=== PATIENT | female | born 1930 | race Asian ===

== ENCOUNTER 2018-04-23 17:58 | Inpatient (IN) | payer MEDICARE, MEDICAID ==
[~2018-04-23] VITALS: Ht 162.6 cm; Wt 59.4 kg
[2018-04-23] MEDS: Sodium Chloride 550 ML IV SCH ×3 (18:29→20:20)
[2018-04-23] MEDS ORDERED: fentaNYL 100 mcg/2 mL IV ONE ×3 (18:45→21:45)
[2018-04-23 18:52] LABS: APPEARANCE,URINE CLEAR; BILIRUBIN, URINE NEGATIVE (NEGATIVE); COLOR,URINE PALE YELLOW; GLUCOSE, URINE (UA) NEGATIVE (NEGATIVE); KETONES,URINE NEGATIVE (NEGATIVE); LEUKOCYTE ESTERASE ,URINE 1+ (NEGATIVE); NITRITE,URINE NEGATIVE (NEGATIVE); PH,URINE 6.5 (4.5-8.0); PROTEIN,URINE NEGATIVE (NEGATIVE); UROBILINOGEN,URINE NORMAL MG/DL (0.0-1.0)
[2018-04-23 19:02] LABS: BASOPHILS % (AUTO) 1.4 % (0.0-2.0); EOSINOPHILS % (AUTO) 1.7 % (0.0-3.0); HEMATOCRIT 38.5 % (37.0-47.0); HEMOGLOBIN 12.1 G/DL (12.0-16.0); LYMPHOCYTES % (AUTO) 25.8 % (20.0-45.0); MEAN CORPUSCULAR VOLUME 97 FL (80-99); MONOCYTES % (AUTO) 6.5 % (1.0-10.0); NEUTROPHILS % (AUTO) 64.6 % (45.0-75.0); PLATELET COUNT 208 K/UL (150-450); RED BLOOD COUNT 3.99 M/UL (4.20-5.40); RED CELL DISTRIBUTION WIDTH 13.5 % (11.6-14.8); WHITE BLOOD COUNT 8.8 K/UL (4.8-10.8)
[2018-04-23 19:06] LABS: INR 0.9 (0.9-1.1)
[2018-04-23 19:10] LABS: ANION GAP 9 mmol/L (5-15); BLOOD UREA NITROGEN 15 mg/dL (7-18); CALCIUM 8.9 MG/DL (8.5-10.1); CARBON DIOXIDE 27 MMOL/L (21-32); CHLORIDE 101 MMOL/L (98-107); CREATININE 0.9 MG/DL (0.55-1.30); POTASSIUM 3.8 MMOL/L (3.5-5.1); SODIUM 137 MMOL/L (136-145)
[2018-04-23 19:14] VITALS: BP 188/92
[2018-04-23 19:15] LABS: ALANINE AMINOTRANSFERASE 13 U/L (12-78); ALBUMIN 4.3 G/DL (3.4-5.0); ALBUMIN/GLOBULIN RATIO 1.1 (1.0-2.7); ALKALINE PHOSPHATASE 51 U/L (46-116); ASPARTATE AMINO TRANSFERASE 17 U/L (15-37); BILIRUBIN,TOTAL 0.4 MG/DL (0.2-1.0)
--- NOTE | 2018-04-23 19:38 | Diagnostic Imaging Report ---
EXAM: XR Right Forearm, 2 Views CLINICAL HISTORY: TRAUMA TECHNIQUE: Frontal and lateral views of the right forearm. COMPARISON: No relevant prior studies available. FINDINGS: Bones/joints: No acute fracture. Soft tissues: No radiodense foreign body. IMPRESSION: No acute fracture.
--- NOTE | 2018-04-23 19:38 | Diagnostic Imaging Report ---
EXAM: XR Right Wrist Complete, 3 or More Views CLINICAL HISTORY: TRAUMA TECHNIQUE: Frontal, lateral and oblique views of the right wrist. COMPARISON: No relevant prior studies available. FINDINGS: Bones/joints: No acute fracture. Degenerative changes. Soft tissues: No radiodense foreign body. IMPRESSION: No acute fracture.
--- NOTE | 2018-04-23 19:42 | Diagnostic Imaging Report ---
EXAM: XR Chest, 1 View CLINICAL HISTORY: TRAUMA TECHNIQUE: Frontal view of the chest. COMPARISON: No relevant prior studies available. FINDINGS: Lungs: Accentuation of interstitial markings and infiltrates in the left lower lung field. Pleural space: Unremarkable. No pneumothorax. Heart: Large cardiomediastinal silhouette. Mediastinum: See above. Bones/joints: No acute fracture. IMPRESSION: 1. Large cardiomediastinal silhouette. 2. Accentuation of interstitial markings and infiltrates in the left lower lung field.
--- NOTE | 2018-04-23 19:44 | Diagnostic Imaging Report ---
EXAM: CT Head Without Intravenous Contrast CLINICAL HISTORY: TRAUMA TECHNIQUE: Axial computed tomography images of the head/brain without intravenous contrast. CTDI is 70.38 mGy DLP is 1347 mGy-cm. One or more of the following dose reduction techniques were used: automated exposure control, adjustment of the mA and/or kV according to patient size, use of iterative reconstruction technique. COMPARISON: No relevant prior studies available. FINDINGS: Brain: No hemorrhage. No edema. Involutional changes with small vessel disease. Ventricles: Prominent ventricles. Bones/joints: No acute fracture. Soft tissues: Unremarkable. Sinuses: No acute sinusitis. Mastoid air cells: No mastoid effusion. Orbits: Cataract surgery. IMPRESSION: No acute traumatic findings.
--- NOTE | 2018-04-23 19:46 | Diagnostic Imaging Report ---
EXAM: XR Pelvis, 1 or 2 Views CLINICAL HISTORY: TRAUMA TECHNIQUE: Frontal view of the pelvis. COMPARISON: No relevant prior studies available. FINDINGS: Bones/joints: No acute fracture or dislocation. Degenerative changes. Pin fixation of the right hip. Soft tissues: No radiodense foreign body. IMPRESSION: No acute fracture or dislocation.
--- NOTE | 2018-04-23 20:15 | Emergency Room Report ---
History of Present Illness General Chief Complaint: Multiple Trauma/Fall Source: Patient, Family Member, EMS Present Illness HPI Patient fell face forward according to video at a supermarket. It's unknown whether she passed out or not. She hit her right shoulder. She's complaining about pain there. She the pain is severe. It's unknown whether she hit her head also. No fevers, chest pain, NVD. Patient not give history. H/O HTN. Allergies: Coded Allergies: No Known Allergies (Unverified , 04/23/18) Patient History Limited by: medical condition Past Medical History: see triage record Past Surgical History: other - R hip pinning Social History: Denies: smoking, alcohol use, drug use Social History Narrative with family Reviewed Nursing Documentation: PMH: Agreed; PSxH: Agreed Nursing Documentation-PMH Hx Hypertension: Yes Hx Gastrointestinal Problems: Yes - GERD Review of Systems All Other Systems: limited Physical Exam Vital Signs Date Time Temp Pulse Resp B/P (MAP) Pulse Ox O2 Delivery O2 Flow Rate FiO2 04/23/18 18:05 98.1 72 13 193/78 99 Room Air Sp02 EP Interpretation: reviewed, normal General Appearance: alert, Chronically Ill Head: normocephalic, other - no tenderness, assymetric skull, no hematoma Eyes: bilateral eye normal inspection, bilateral eye PERRL, bilateral eye EOMI ENT: moist mucus membranes Neck: supple, no bony tend Respiratory: chest non-tender, lungs clear, normal breath sounds Cardiovascular #1: regular rate, rhythm Cardiovascular #2: 2+ radial (R) Gastrointestinal: normal inspection, normal bowel sounds, non tender, no mass, non-distended Musculoskeletal: back normal, normal range of motion - except R shoulder - painful PROM and TTP , no calf tenderness, pelvis stable Neurologic: alert, motor strength/tone normal - except R shoulder - due to pain , DTRs symmetric, sensory intact, oriented - X2 Psychiatric: depressed affect Skin: normal inspection, warm/dry Medical Decision Making Diagnostic Impression: Primary Impression: Syncope Qualified Codes: R55 - Syncope and collapse Additional Impressions: Fall Qualified Codes: W19.XXXA - Unspecified fall, initial encounter Shoulder fracture, right Qualified Codes: S42.91XA - Fracture of right shoulder girdle, part unspecified, initial encounter for closed fracture ER Course Patient presents after syncopal episode from a standing position falling on her right side. Differential includes acute myocardial infarction, arrhythmia, trauma secondary to fall, intracerebral bleed amongst others. EKG, chest x-ray , CT the head, right humerus and forearm x-rays and AP pelvis are indicated along with labs. The patient will be given analgesia. EKG with sinus rhythm and sinus arrhythmia no acute changes. Chest x-ray without obvious rib fractures. Right humerus with humeral head fracture. Forearm without fracture. AP pelvis without fracture patient is status post screws in the right hip Patient is requiring high doses of analgesia to control the pain in her arm. A sling is applied and position is good and neurovascular is checked by me afterwards which is normal. Because of the syncopal episode the patient needs to be admitted for observation. Also orthopedic consultation will be obtained. Admit tele, Dr. Maza. Consult with . Sling applied by tech. Position excellent with improved pain. Distal neurovasc normal. Laboratory Tests Test 04/23/18 18:40 White Blood Count 8.8 K/UL (4.8-10.8) Red Blood Count 3.99 M/UL (4.20-5.40) L Hemoglobin 12.1 G/DL (12.0-16.0) Hematocrit 38.5 % (37.0-47.0) Mean Corpuscular Volume 97 FL (80-99) Mean Corpuscular Hemoglobin 30.3 PG (27.0-31.0) Mean Corpuscular Hemoglobin Concent 31.4 G/DL (32.0-36.0) L Red Cell Distribution Width 13.5 % (11.6-14.8) Platelet Count 208 K/UL (150-450) Mean Platelet Volume 7.1 FL (6.5-10.1) Neutrophils (%) (Auto) 64.6 % (45.0-75.0) Lymphocytes (%) (Auto) 25.8 % (20.0-45.0) Monocytes (%) (Auto) 6.5 % (1.0-10.0) Eosinophils (%) (Auto) 1.7 % (0.0-3.0) Basophils (%) (Auto) 1.4 % (0.0-2.0) Prothrombin Time 10.0 SEC (9.30-11.50) Prothrombin Time INR 0.9 (0.9-1.1) PTT 27 SEC (23-33) Urine Color Pale yellow Urine Appearance Clear Urine pH 6.5 (4.5-8.0) Urine Specific [place] 1.015 (1.005-1.035) Urine Protein Negative (NEGATIVE) Urine Glucose (UA) Negative (NEGATIVE) Urine Ketones Negative (NEGATIVE) Urine Blood 2+ (NEGATIVE) H Urine Nitrite Negative (NEGATIVE) Urine Bilirubin Negative (NEGATIVE) Urine Urobilinogen Normal MG/DL (0.0-1.0) Urine Leukocyte Esterase 1+ (NEGATIVE) H Urine RBC 10-15 /HPF (0 - 2) H Urine WBC 2-4 /HPF (0 - 2) Urine Squamous Epithelial Cells Moderate /LPF (NONE/OCC) H Urine Bacteria Few /HPF (NONE) Sodium Level 137 MMOL/L (136-145) Potassium Level 3.8 MMOL/L (3.5-5.1) Chloride Level 101 MMOL/L (98-107) Carbon Dioxide Level 27 MMOL/L (21-32) Anion Gap 9 mmol/L (5-15) Blood Urea Nitrogen 15 mg/dL (7-18) Creatinine 0.9 MG/DL (0.55-1.30) Estimate Glomerular Filtration Rate mL/min (>60) Glucose Level 101 MG/DL (74-106) Calcium Level 8.9 MG/DL (8.5-10.1) Total Bilirubin 0.4 MG/DL (0.2-1.0) Aspartate Amino Transferase (AST) 17 U/L (15-37) Alanine Aminotransferase (ALT) 13 U/L (12-78) Alkaline Phosphatase 51 U/L (46-116) Total Protein 8.1 G/DL (6.4-8.2) Albumin 4.3 G/DL (3.4-5.0) Globulin 3.8 g/dL Albumin/Globulin Ratio 1.1 (1.0-2.7) EKG Diagnostic Results Rate: normal Rhythm: NSR ST Segments: no acute changes - Sinus arrhythmia Rhythm Strip Diag. Results EP Interpretation: yes Rhythm: NSR, no PVC's, no ectopy Chest X-Ray Diagnostic Results Chest X-Ray Diagnostic Results : Chest X-Ray Ordered: Yes # of Views/Limited/Complete: 1 View Indication: Other EP Interpretation: Yes Interpretation: no consolidation, no effusion, no pneumothorax, other - Poor inspiration Impression: Other Electronically Signed by: Electronically signed by Eddie Doty MD Other X-Ray Diagnostic Results Other X-Ray Diagnostic Results #1: X-Ray ordered: AP pelvis # of Views/Limited Vs Complete: 1 View Indication: Pain Interpretation: no dislocation, no soft tissue swelling, no fractures, nonspecific bowel gas, other - Small bowel loops and increased stool status post right hip pinning Impression: Other Electronically Signed by: Electronically signed by Eddie Doty MD Other X-Ray Diagnostic Results #2: X-Ray ordered: Right humerus # of Views/Limited Vs Complete: 2 View Indication: Pain Interpretation: no dislocation, no soft tissue swelling, other - Fractured head of humerus Impression: Other Electronically Signed by: Electronically signed by Eddie Doty MD Other X-Ray Diagnostic Results #3: X-Ray ordered: Right forearm # of Views/Limited Vs Complete: 2 View Indication: Pain Interpretation: no dislocation, no soft tissue swelling, no fractures Impression: No acute disease Electronically Signed by: Electronically signed by Eddie Doty MD Other X-Ray Diagnostic Results #4: X-Ray ordered: Right wrist # of Views/Limited Vs Complete: 3 View Indication: Pain Interpretation: no dislocation, no soft tissue swelling, no fractures Impression: No acute disease Electronically Signed by: Electronically signed by Eddie Doty MD CT/MRI/US Diagnostic Results CT/MRI/US Diagnostic Results : Imaging Test Ordered: Head Impression involutional changes no bleed or masses Last Vital Signs Date Time Temp Pulse Resp B/P (MAP) Pulse Ox O2 Delivery O2 Flow Rate FiO2 04/24/18 00:09 98.4 75 17 159/87 98 Room Air Status: improved Disposition: ADMITTED INPATIENT Condition: Serious Eddie Doty MD Apr 23, 2018 20:15
[2018-04-23 20:36] VITALS: BP 170/85
[2018-04-23 22:02] VITALS: BP 146/102
[2018-04-24] VITALS (7 sets, daily range): BP systolic 149–170; BP diastolic 81–99
[2018-04-24] MEDS ORDERED: Morphine Sulfate 2mg/ml Inj(IV/IM USE ONLY) IVP PRN (01:15)
[2018-04-24] MEDS ORDERED: Morphine Sulfate 4mg/ml Inj (IV USE ONLY) IVP PRN (01:15)
[2018-04-24] MEDS: Sodium Chloride 550 ML IV SCH (05:30)
[2018-04-24] MEDS: Hydromorphone 0.5mg/0.5ml inj IVP PRN ×2 (08:33→14:25)
[2018-04-24] MEDS: Heparin 5000 units/ml inj SUBQ SCH ×2 (08:53→21:09)
--- NOTE | 2018-04-24 14:58 | History & Physical ---
History and Physical History & Physicial History and Physical HPI Patient fell face forward according to video at a supermarket. It's unknown whether she passed out or not. She hit her right shoulder. She's complaining about pain there. She the pain is severe. It's unknown whether she hit her head also. Denies cough, noted to have Pneumonia on CXR No fevers, chest pain, NVD. PMH: HTN, GERD, R hip surgery Allergies: Coded Allergies: No Known Allergies (Unverified , 04/23/18) All Other Systems: limited Physical Exam Vital Signs Noted General Appearance: alert, Chronically Ill, in some pain Head: normocephalic, other - no tenderness, assymetric skull, no hematoma Eyes: bilateral eye normal inspection, bilateral eye PERRL, bilateral eye EOMI ENT: moist mucus membranes Neck: supple, no bony tend Respiratory: chest non-tender, lungs clear, normal breath sounds Cardiovascular: HS1, HS2, regular rate, rhythm, 2+ radial pulses (R) Gastrointestinal: normal inspection, normal bowel sounds, non tender, no mass, non-distended Musculoskeletal: back normal, normal range of motion - except R shoulder - painful PROM and TTP , no calf tenderness, pelvis stable Neurologic: alert, motor strength/tone normal - except R shoulder - due to pain , DTRs symmetric, sensory intact, oriented - X2 Psychiatric: depressed affect Skin: normal inspection, warm/dry Impression: Syncope, Fall Shoulder fracture, right Hypertension GERD Plan Orthopedic Consult Cardiology Consult The patient will be given analgesia. IV antibiotics Sling PPX TAX AUDIT MANAGER medications Incentive spirometer O2 PRN Laboratory Tests Test 04/23/18 18:40 White Blood Count 8.8 K/UL (4.8-10.8) Red Blood Count 3.99 M/UL (4.20-5.40) L Hemoglobin 12.1 G/DL (12.0-16.0) Hematocrit 38.5 % (37.0-47.0) Mean Corpuscular Volume 97 FL (80-99) Mean Corpuscular Hemoglobin 30.3 PG (27.0-31.0) Mean Corpuscular Hemoglobin Concent 31.4 G/DL (32.0-36.0) L Red Cell Distribution Width 13.5 % (11.6-14.8) Platelet Count 208 K/UL (150-450) Mean Platelet Volume 7.1 FL (6.5-10.1) Neutrophils (%) (Auto) 64.6 % (45.0-75.0) Lymphocytes (%) (Auto) 25.8 % (20.0-45.0) Monocytes (%) (Auto) 6.5 % (1.0-10.0) Eosinophils (%) (Auto) 1.7 % (0.0-3.0) Basophils (%) (Auto) 1.4 % (0.0-2.0) Prothrombin Time 10.0 SEC (9.30-11.50) Prothrombin Time INR 0.9 (0.9-1.1) PTT 27 SEC (23-33) Urine Color Pale yellow Urine Appearance Clear Urine pH 6.5 (4.5-8.0) Urine Specific [place] 1.015 (1.005-1.035) Urine Protein Negative (NEGATIVE) Urine Glucose (UA) Negative (NEGATIVE) Urine Ketones Negative (NEGATIVE) Urine Blood 2+ (NEGATIVE) H Urine Nitrite Negative (NEGATIVE) Urine Bilirubin Negative (NEGATIVE) Urine Urobilinogen Normal MG/DL (0.0-1.0) Urine Leukocyte Esterase 1+ (NEGATIVE) H Urine RBC 10-15 /HPF (0 - 2) H Urine WBC 2-4 /HPF (0 - 2) Urine Squamous Epithelial Cells Moderate /LPF (NONE/OCC) H Urine Bacteria Few /HPF (NONE) Sodium Level 137 MMOL/L (136-145) Potassium Level 3.8 MMOL/L (3.5-5.1) Chloride Level 101 MMOL/L (98-107) Carbon Dioxide Level 27 MMOL/L (21-32) Anion Gap 9 mmol/L (5-15) Blood Urea Nitrogen 15 mg/dL (7-18) Creatinine 0.9 MG/DL (0.55-1.30) Estimate Glomerular Filtration Rate mL/min (>60) Glucose Level 101 MG/DL (74-106) Calcium Level 8.9 MG/DL (8.5-10.1) Total Bilirubin 0.4 MG/DL (0.2-1.0) Aspartate Amino Transferase (AST) 17 U/L (15-37) Alanine Aminotransferase (ALT) 13 U/L (12-78) Alkaline Phosphatase 51 U/L (46-116) Total Protein 8.1 G/DL (6.4-8.2) Albumin 4.3 G/DL (3.4-5.0) Globulin 3.8 g/dL Albumin/Globulin Ratio 1.1 (1.0-2.7) EKG: Rate: normal Rhythm: NSR ST Segments: no acute changes - Sinus arrhythmia XR AP pelvis: no dislocation, no soft tissue swelling, no fractures, nonspecific bowel gas, other - Small bowel loops and increased stool status post right hip pinning XR Right humerus: no dislocation, no soft tissue swelling, other - Fractured head of humerus Right forearm X ray: no dislocation, no soft tissue swelling, no fractures Right wrist XR: No acute disease XR Chest: Left basal infiltrates, CM CT Head: involutional changes no bleed or masses Eddie Miguel MD Apr 24, 2018 14:58
[2018-04-24] MEDS ORDERED: Albuterol/Ipratropium 3ml neb HHN PRN (16:30)
[2018-04-24] MEDS ORDERED: HydrALAZINE 25mg tab ORAL PRN (16:30)
[2018-04-24] MEDS: Piperacillin/Tazobactam 3.375 GM in NS 110 ML IVPB SCH (17:16)
[2018-04-25] VITALS: BP 160/87
[2018-04-25] MEDS: Piperacillin/Tazobactam 3.375 GM in NS 110 ML IVPB SCH ×3 (00:55→17:17)
[2018-04-25 04:00] VITALS: BP 144/80
[2018-04-25 04:42] LABS: BASOPHILS % (AUTO) 1.7 % (0.0-2.0); EOSINOPHILS % (AUTO) 1.9 % (0.0-3.0); HEMATOCRIT 35.9 % (37.0-47.0); HEMOGLOBIN 11.5 G/DL (12.0-16.0); LYMPHOCYTES % (AUTO) 24.6 % (20.0-45.0); MEAN CORPUSCULAR VOLUME 97 FL (80-99); MONOCYTES % (AUTO) 7.3 % (1.0-10.0); NEUTROPHILS % (AUTO) 64.4 % (45.0-75.0); PLATELET COUNT 256 K/UL (150-450); RED BLOOD COUNT 3.71 M/UL (4.20-5.40); RED CELL DISTRIBUTION WIDTH 13.9 % (11.6-14.8); WHITE BLOOD COUNT 9.5 K/UL (4.8-10.8)
[2018-04-25 05:27] LABS: ALANINE AMINOTRANSFERASE 16 U/L (12-78); ALBUMIN 3.6 G/DL (3.4-5.0); ALKALINE PHOSPHATASE 43 U/L (46-116); ANION GAP 10 mmol/L (5-15); ASPARTATE AMINO TRANSFERASE 31 U/L (15-37); BILIRUBIN,TOTAL 0.8 MG/DL (0.2-1.0); BLOOD UREA NITROGEN 14 mg/dL (7-18); CALCIUM 8.7 MG/DL (8.5-10.1); CARBON DIOXIDE 24 MMOL/L (21-32); CHLORIDE 103 MMOL/L (98-107); POTASSIUM 4.5 MMOL/L (3.5-5.1); SODIUM 137 MMOL/L (136-145)
[2018-04-25 08:00] VITALS: BP 124/81
--- NOTE | 2018-04-25 08:10 | Consultation ---
Consult Note Consult Note 88 yo female with fall, possibly syncopal episode, and rt humerus fx. c/o rt arm pain. +swelling and ecchymosis. n/v intact Xray reviewed: rt humeral neck fracture, non displaced, with small chip fracture of greater tuberosity no surgery needed. recommend sling immobilization. gentle ROM rt elbow hand wrist. Ice will f/u as outpt. Barbie Daley Apr 25, 2018 08:10
--- NOTE | 2018-04-25 08:57 | General Progress Note ---
Assessment/Plan Assessment/Plan Syncope, Fall Shoulder fracture, right Hypertension GERD advanced age possible dementia PLAN tele noted care reviewed d/w family per ortho, no surgery dc planning ? snf vs home impression, plan, and exam edited and reviewed in detail care discussed with RN Subjective Allergies: Coded Allergies: No Known Allergies (Unverified , 04/23/18) Subjective care noted and reviewed in bed comfortable no distress Objective Last 24 Hour Vital Signs Date Time Temp Pulse Resp B/P (MAP) Pulse Ox O2 Delivery O2 Flow Rate FiO2 04/25/18 04:08 76 04/25/18 04:07 Room Air Room Air 04/25/18 04:00 97.7 73 18 144/80 (101) 98 04/25/18 00:00 76 04/25/18 00:00 97.4 70 16 160/87 (111) 94 04/25/18 00:00 Room Air Room Air 04/24/18 20:00 75 04/24/18 20:00 Room Air Room Air 04/24/18 20:00 97.8 63 16 166/88 (114) 94 04/24/18 16:26 62 170/89 04/24/18 16:00 97.5 67 18 170/89 (116) 97 04/24/18 16:00 84 04/24/18 16:00 Room Air 04/24/18 14:55 97.2 04/24/18 12:00 Room Air 04/24/18 12:00 97.2 70 20 149/84 (105) 96 04/24/18 12:00 72 Intake and Output 04/24/18 04/25/18 18:59 06:59 Intake Total 507.5 ml 192.5 ml Output Total 140 ml 1550 ml Balance 367.5 ml -1357.5 ml Intake Oral 480 ml IV Total 27.5 ml 192.5 ml Output Urine Total 140 ml 1550 ml # Voids 3 Laboratory Tests 04/25/18 03:45: White Blood Count 9.5, Red Blood Count 3.71L, Hemoglobin 11.5L, Hematocrit 35.9L , Mean Corpuscular Volume 97, Mean Corpuscular Hemoglobin 30.9, Mean Corpuscular Hemoglobin Concent 32.0, Red Cell Distribution Width 13.9, Platelet Count 256, Mean Platelet Volume 6.8, Neutrophils (%) (Auto) 64.4, Lymphocytes (% ) (Auto) 24.6, Monocytes (%) (Auto) 7.3, Eosinophils (%) (Auto) 1.9, Basophils ( %) (Auto) 1.7, Prothrombin Time 10.6, Prothromb Time International Ratio 1.0, Sodium Level 137, Potassium Level 4.5, Chloride Level 103, Carbon Dioxide Level 24, Anion Gap 10, Blood Urea Nitrogen 14, Creatinine 1.0, Estimat Glomerular Filtration Rate , Glucose Level 104, Calcium Level 8.7, Total Bilirubin 0.8, Aspartate Amino Transf (AST/SGOT) 31, Alanine Aminotransferase (ALT/SGPT) 16, Alkaline Phosphatase 43L, Total Protein 7.3, Albumin 3.6, Globulin 3.7, Albumin/ Globulin Ratio 1.0 Height (Feet): 5 Height (Inches): 4.00 Weight (Pounds): 115 Objective WDWN NAD clear breath sounds bilaterally without rhonchi or wheeze [id number] without MRG NABS nontender no HSM no CC right shoulder pain nonfocal Fab Maza MD Apr 25, 2018 08:57
[2018-04-25] MEDS: Heparin 5000 units/ml inj SUBQ SCH ×2 (09:00→20:34)
[2018-04-25 12:00] VITALS: BP 128/84
--- NOTE | 2018-04-25 14:46 | Consultation ---
DATE OF CONSULTATION: 04/25/2018 ORTHOPEDIC CONSULTATION CONSULTING PHYSICIAN: Jack Malhotra M.D. HISTORY OF PRESENT ILLNESS: The patient is a very pleasant 88-year-old female, who had a witnessed fall in a supermarket and she is not quite sure what happened. This is being worked up for a syncopal episode, but she did fall forward landing on her right shoulder and had immediate onset of right shoulder and arm pain. She was helped up and transferred to [facility] ER where right shoulder and humerus x-ray showed a proximal humerus fracture with a small greater tuberosity fracture. Orthopedic consult has been called for question of surgical intervention. The patient is currently admitted to telemetry floor with workup for syncope. PAST MEDICAL HISTORY: Hypertension and GERD. PAST SURGICAL HISTORY: Right hip surgery. ALLERGIES: None. SOCIAL HISTORY: She is independent with all activities. She lives at home. PHYSICAL EXAMINATION: GENERAL: She is a very pleasant woman. She is cooperative with examination. EXTREMITIES: She has some ecchymosis of the right upper arm around the proximal femur, she has tenderness and some mild swelling. She is neurovascularly intact with ability to flex and extend the wrist and can wiggler her fingers. She has intact sensation in the axillary nerve. She can bend at the elbow without pain. However, any movement of the right upper arm or shoulder is very painful. There is no major tenderness around the clavicular area. IMAGING STUDIES: X-rays are reviewed. Multiple were obtained and most notably on humerus and shoulder x-rays, a nondisplaced humeral neck fracture and a small fracture of the greater tuberosity with minimal displacement. There is no dislocation. IMPRESSION: Right shoulder nondisplaced proximal humerus fracture with small chip fracture of the greater tuberosity and minimal displacement. No dislocation. DISCUSSION: At this time, I discussed the patient's findings. This does not require surgery. This will go on to healing. I would recommend sling immobilization for about four weeks before proceeding with gentle physical therapy. I would recommend ice, pain control, and very easy range of motion of right elbow, hand, and wrist. I will be happy to see her back in the office for continued outpatient management and serial x-rays to ensure this goes on to healing. All questions were answered by the patient. Thank you for allowing me to participate in the care of this patient. Please do not hesitate to contact me if there are any questions or concerns. Jack Malhotra M.D. Inez Lee DR: LOIS JOB#: [id number] CC: CECELIA
[2018-04-25 16:00] VITALS: BP 111/71
[2018-04-25 20:00] VITALS: BP 115/74
[2018-04-26] VITALS: BP 107/67
[2018-04-26] MEDS: Piperacillin/Tazobactam 3.375 GM in NS 110 ML IVPB SCH ×4 (01:28→23:58)
[2018-04-26 04:00] VITALS: BP 111/67
[2018-04-26 07:34] LABS: BASOPHILS % (AUTO) 1.4 % (0.0-2.0); EOSINOPHILS % (AUTO) 2.7 % (0.0-3.0); HEMATOCRIT 35.2 % (37.0-47.0); HEMOGLOBIN 11.3 G/DL (12.0-16.0); LYMPHOCYTES % (AUTO) 26.3 % (20.0-45.0); MEAN CORPUSCULAR VOLUME 96 FL (80-99); NEUTROPHILS % (AUTO) 57.7 % (45.0-75.0); PLATELET COUNT 218 K/UL (150-450); RED BLOOD COUNT 3.68 M/UL (4.20-5.40); RED CELL DISTRIBUTION WIDTH 13.5 % (11.6-14.8); WHITE BLOOD COUNT 8.8 K/UL (4.8-10.8)
[2018-04-26 07:55] LABS: ALANINE AMINOTRANSFERASE 18 U/L (12-78); ALBUMIN 3.2 G/DL (3.4-5.0); ALBUMIN/GLOBULIN RATIO 0.9 (1.0-2.7); ALKALINE PHOSPHATASE 36 U/L (46-116); ANION GAP 10 mmol/L (5-15); ASPARTATE AMINO TRANSFERASE 24 U/L (15-37); BILIRUBIN,TOTAL 0.8 MG/DL (0.2-1.0); BLOOD UREA NITROGEN 21 mg/dL (7-18); CALCIUM 8.3 MG/DL (8.5-10.1); CARBON DIOXIDE 27 MMOL/L (21-32); CHLORIDE 107 MMOL/L (98-107); POTASSIUM 3.9 MMOL/L (3.5-5.1); SODIUM 144 MMOL/L (136-145)
[2018-04-26 08:00] VITALS: BP 118/82
--- NOTE | 2018-04-26 08:21 | General Progress Note ---
Assessment/Plan Assessment/Plan Syncope, Fall Shoulder fracture, right Hypertension GERD advanced age possible dementia PLAN tele noted care reviewed d/w family - message left but no response back yet per ortho, no surgery dc planning ? snf vs home; pending family discussion impression, plan, and exam edited and reviewed in detail care discussed with RN Subjective Allergies: Coded Allergies: No Known Allergies (Unverified , 04/23/18) Subjective care noted and reviewed in bed comfortable no distress Objective Last 24 Hour Vital Signs Date Time Temp Pulse Resp B/P (MAP) Pulse Ox O2 Delivery O2 Flow Rate FiO2 04/26/18 07:18 97.5 04/26/18 05:04 70 20 Room Air 04/26/18 04:00 97.5 80 20 111/67 (82) 95 04/26/18 04:00 84 04/26/18 00:00 92 04/26/18 00:00 98.6 97 20 107/67 (80) 96 04/25/18 20:00 98.0 105 22 115/74 (88) 96 04/25/18 20:00 Room Air Room Air 04/25/18 19:27 97 04/25/18 16:00 97.6 81 19 111/71 (84) 93 04/25/18 16:00 Room Air Room Air 04/25/18 16:00 84 04/25/18 12:00 Room Air Room Air 04/25/18 12:00 98.2 84 12 128/84 (99) 100 04/25/18 12:00 76 04/25/18 09:00 84 128/84 Intake and Output 04/25/18 04/26/18 18:59 06:59 Intake Total 437.5 ml 82.5 ml Output Total 800 ml Balance -362.5 ml 82.5 ml Intake Oral 300 ml IV Total 137.5 ml 82.5 ml Output Urine Total 800 ml Laboratory Tests 04/26/18 06:39: White Blood Count 8.8, Red Blood Count 3.68L, Hemoglobin 11.3L, Hematocrit 35.2L , Mean Corpuscular Volume 96, Mean Corpuscular Hemoglobin 30.8, Mean Corpuscular Hemoglobin Concent 32.2, Red Cell Distribution Width 13.5, Platelet Count 218, Mean Platelet Volume 7.2, Neutrophils (%) (Auto) 57.7, Lymphocytes (% ) (Auto) 26.3, Monocytes (%) (Auto) 12.0H, Eosinophils (%) (Auto) 2.7, Basophils (%) (Auto) 1.4, Sodium Level 144, Potassium Level 3.9, Chloride Level 107, Carbon Dioxide Level 27, Anion Gap 10, Blood Urea Nitrogen 21H, Creatinine 1.0, Estimat Glomerular Filtration Rate , Glucose Level 87, Calcium Level 8.3L, Total Bilirubin 0.8, Aspartate Amino Transf (AST/SGOT) 24, Alanine Aminotransferase (ALT/SGPT) 18, Alkaline Phosphatase 36L, Total Protein 6.7, Albumin 3.2L, Globulin 3.5, Albumin/Globulin Ratio 0.9L Height (Feet): 5 Height (Inches): 4.00 Weight (Pounds): 115 Objective WDWN NAD clear breath sounds bilaterally without rhonchi or wheeze [id number] without MRG NABS nontender no HSM no CC right shoulder pain nonfocal Fab Maza MD Apr 26, 2018 08:21
[2018-04-26] MEDS: Heparin 5000 units/ml inj SUBQ SCH ×2 (08:41→20:16)
[2018-04-26 12:00] VITALS: BP 105/70
[2018-04-26 16:00] VITALS: BP 107/64
[2018-04-26 20:00] VITALS: BP 124/74
[2018-04-26] MEDS: Hydromorphone 0.5mg/0.5ml inj IVP PRN (23:31)
[2018-04-27] VITALS: BP 111/59
[2018-04-27 04:00] VITALS: BP 107/67
[2018-04-27 07:39] LABS: ALANINE AMINOTRANSFERASE 25 U/L (12-78); ALBUMIN 2.9 G/DL (3.4-5.0); ALBUMIN/GLOBULIN RATIO 0.9 (1.0-2.7); ALKALINE PHOSPHATASE 35 U/L (46-116); ANION GAP 8 mmol/L (5-15); ASPARTATE AMINO TRANSFERASE 30 U/L (15-37); BILIRUBIN,TOTAL 0.7 MG/DL (0.2-1.0); BLOOD UREA NITROGEN 26 mg/dL (7-18); CALCIUM 8.5 MG/DL (8.5-10.1); CARBON DIOXIDE 27 MMOL/L (21-32); CHLORIDE 109 MMOL/L (98-107); SODIUM 144 MMOL/L (136-145)
[2018-04-27 07:49] LABS: BASOPHILS % (AUTO) 1.1 % (0.0-2.0); EOSINOPHILS % (AUTO) 6.8 % (0.0-3.0); HEMATOCRIT 31.5 % (37.0-47.0); HEMOGLOBIN 10.2 G/DL (12.0-16.0); LYMPHOCYTES % (AUTO) 33.1 % (20.0-45.0); MEAN CORPUSCULAR VOLUME 96 FL (80-99); MONOCYTES % (AUTO) 9.3 % (1.0-10.0); NEUTROPHILS % (AUTO) 49.7 % (45.0-75.0); PLATELET COUNT 192 K/UL (150-450); RED BLOOD COUNT 3.29 M/UL (4.20-5.40); RED CELL DISTRIBUTION WIDTH 13.5 % (11.6-14.8); WHITE BLOOD COUNT 9.8 K/UL (4.8-10.8)
[2018-04-27 08:49] VITALS: BP 137/74
[2018-04-27 08:56] VITALS: BP 137/74
[2018-04-27] MEDS: Heparin 5000 units/ml inj SUBQ SCH (08:56)
--- NOTE | 2018-04-27 10:10 | General Progress Note ---
Assessment/Plan Assessment/Plan Syncope, Fall Shoulder fracture, right Hypertension GERD advanced age possible dementia PLAN dc to snf short term rehab impression, plan, and exam edited and reviewed in detail care discussed with RN Subjective Allergies: Coded Allergies: No Known Allergies (Unverified , 04/23/18) Subjective care noted and reviewed in bed comfortable no distress Objective Last 24 Hour Vital Signs Date Time Temp Pulse Resp B/P (MAP) Pulse Ox O2 Delivery O2 Flow Rate FiO2 04/27/18 09:00 Room Air Room Air 04/27/18 08:56 87 137/74 04/27/18 08:49 98.1 87 18 137/74 (95) 95 04/27/18 04:00 99.0 74 18 107/67 (80) 95 04/27/18 04:00 75 04/27/18 00:01 98.7 04/27/18 00:00 85 04/27/18 00:00 98.0 78 18 111/59 (76) 95 04/26/18 21:00 Room Air Room Air 04/26/18 20:00 78 04/26/18 20:00 98.7 98 20 124/74 (91) 96 04/26/18 17:39 75 04/26/18 16:00 98.8 80 20 107/64 (78) 96 04/26/18 12:00 97.6 87 20 105/70 (82) 95 04/26/18 11:38 74 Intake and Output 04/26/18 04/27/18 19:00 07:00 Intake Total 950.0 ml Output Total 350 ml Balance 600.0 ml Intake Oral 840 ml IV Total 110.0 ml Output Urine Total 350 ml # Voids 2 2 Laboratory Tests 04/27/18 05:30: White Blood Count 9.8, Red Blood Count 3.29L, Hemoglobin 10.2L, Hematocrit 31.5L , Mean Corpuscular Volume 96, Mean Corpuscular Hemoglobin 31.0, Mean Corpuscular Hemoglobin Concent 32.3, Red Cell Distribution Width 13.5, Platelet Count 192, Mean Platelet Volume 7.0, Neutrophils (%) (Auto) 49.7, Lymphocytes (% ) (Auto) 33.1, Monocytes (%) (Auto) 9.3, Eosinophils (%) (Auto) 6.8H, Basophils (%) (Auto) 1.1, Sodium Level 144, Potassium Level 4.0, Chloride Level 109H, Carbon Dioxide Level 27, Anion Gap 8, Blood Urea Nitrogen 26H, Creatinine 1.0, Estimat Glomerular Filtration Rate , Glucose Level 77, Calcium Level 8.5, Total Bilirubin 0.7, Aspartate Amino Transf (AST/SGOT) 30, Alanine Aminotransferase ( ALT/SGPT) 25, Alkaline Phosphatase 35L, Total Protein 6.2L, Albumin 2.9L, Globulin 3.3, Albumin/Globulin Ratio 0.9L Height (Feet): 5 Height (Inches): 4.00 Weight (Pounds): 131 Objective WDWN NAD clear breath sounds bilaterally without rhonchi or wheeze [id number] without MRG NABS nontender no HSM no CC right shoulder pain nonfocal Fab Maza MD Apr 27, 2018 10:10
[2018-04-27] MEDS ORDERED: NS 275ml ONE (10:39)
[2018-04-27] MEDS ORDERED: Tubing IV Secondary IV ONE (10:39)
--- NOTE | 2018-04-28 09:33 | Cardiology Report ---
APPROVED REPORT EKG Measurement Heart [id number] Sinus rhythm with marked sinus arrhythmia with occasional premature ventricular complexes Otherwise normal ECG
--- NOTE | 2018-04-28 13:39 | Discharge Summary ---
Discharge Summary Discharge Summary _ DATE OF ADMISSION: 04/23/2018 DATE OF DISCHARGE: 04/27/2018 DISCHARGED BY: Dr. Maverick Maza CONSULTANTS: Dr. Jack Malhotra BRIEF HOSPITAL COURSE: Patient is an 88-year-old female, who fell face forward at a supermarket. Unknown whether she passed out or not. She hit her right shoulder and complained of pain. Pain was severe. Unknown whether there was head trauma. She denied cough. There was no fever, no chest pain, no nausea, no vomiting or diarrhea. She has medical history significant for hypertension, GERD and a prior right hip surgery. On evaluation at ED, blood pressure was elevated to 193/78. Blood work was unremarkable. Urinalysis showed 1+ leukocyte esterase, 10-15 RBC, 2-4 WBC EKG was in normal sinus rhythm with no acute changes. Chest x-ray showed accentuation of interstitial markings and infiltrate in the left lung field. Pelvic x-ray was without any dislocation, no soft tissue swelling, no fracture, there was small bowel loops and increased stool. Right humerus x-ray showed fractured head of the humerus. Right forearm x-ray was without any dislocation or fractures. Right wrist x-ray was without fracture or dislocation. Head CT showed no acute traumatic findings. Orthopedic consultation was obtained. Patient had a right shoulder nondisplaced proximal humerus fracture with a small chip fracture of the greater tuberosity and minimal displacement. There was no dislocation. Findings does not need surgical intervention. Fracture will go on to healing. She was recommended sling for immobilization for about 4 weeks before starting physical therapy. She was given pain control and was advised easy range of motion of the right elbow, hand and wrist. She was recommended orthopedic follow-up as outpatient for serial x-ray. She was given antihypertensives. She was given Dilaudid for pain control. She was eventually started on Zosyn and Vibramycin. She was given nebulizer treatment. She was eventually discharged to SNF for short-term placement. FINAL DIAGNOSES: Status post fall with right shoulder fracture Syncope/fall Hypertension GERD Advanced age Stable dementia Possible pneumonia based on CXR DISPOSITION: Patient was discharged to a SNF. I have been assigned to complete a discharge summary on this account, I was not involved with the patient's management. Luzmaria Ferrara NP Apr 28, 2018 13:39
== END 2018-04-27 10:40 | DRG 562 ==
LOC: EMR 18:30 → EDBEDREQSVC 18:52 → 2W 21:40 → EDBEDREQ 04-24 01:00 → 2W 04-24 18:38 → 2E 04-25 21:35
PROC: 2W3AX3Z Immobilization of Right Upper Arm using Brace (ICD-10-PCS; principal; 2018-04-23)
DX: S42.251A Displaced fracture of greater tuberosity of right humerus, initial encounter for closed fracture (principal); J18.9 Pneumonia, unspecified organism; R55 Syncope and collapse; I10 Essential (primary) hypertension; K21.9 Gastro-esophageal reflux disease without esophagitis; W19.XXXA Unspecified fall, initial encounter; Y92.512 Supermarket, store or market as the place of occurrence of the external cause
CPT/HCPCS: 36415; 70450; 71045; 72170; 80053; 81001; 85025; 85610; 85730; 86850; 86900; 86901; 93005; 94664; 96374; 96375; 96376; 99285; J2405